=== PATIENT | male | born 1990 | race Caucasian/White ===

== ENCOUNTER 2018-02-12 18:09 | Inpatient (IN) | payer OTHER ==
--- NOTE | 2018-02-12 19:02 | PDOC ---
Rapid Medical Evaluation Chief Complaint: Pain Time Seen by Provider: 02/12/18 18:54 Medical Evaluation: Allergies Allergy/AdvReac Type Severity Reaction Status Date / Time hydromorphone [From Dilaudid] AdvReac Verified 02/12/18 18:51 Vital Signs Temp Pulse Resp BP Pulse Ox 97.9 F 78 18 114/66 98 02/12/18 18:53 02/12/18 18:53 02/12/18 18:53 02/12/18 18:53 02/12/18 18:53 02/12/18 18:55 Surgery for lap zahra on 02/05 @[facility] hosp D/C from [facility] on 02/07 Went home c/o n/v Went back to [facility] on 02/12 at ~ 1330 hours today/given zofran and d/c Pt states he went home today and started having n/v again CT of abd/pelvis today at [facility]: No discrete liver lesions. Sugg interval cholecystectomy with clips noted in gb fossa. CAnnot exclude a small biliary leak. Today, pt also had GAS test=neg ordered: CBC/chem
[2018-02-12] MEDS ORDERED: ONDANSETRON *ODT* 4 MG TABLET SL ONE (19:03)
--- NOTE | 2018-02-12 19:19 | PDOC ---
History of Present Illness - General Chief Complaint: Pain Stated Complaint: POST OP PAIN Time Seen by Provider: 02/12/18 18:54 - History of Present Illness Initial Comments: 27 year old healthy male 7 days s/p lap zahra complicated by need for second port hole for large gallbladder removal presenting with nausea, vomiting, fevers , and general weakness for the past 4 days after being discharged from [facility] Patient presents with his sister at bedside who states that the were at [facility] prior to presenting here but deferred further care there when the general surgeon told them that he needed to to take them back to the OR based on his symptoms and the CT scan demonstrating a collection of fluid. He received Zofran and Dilaudid in the ED there. Since the surgery he has been on ciproflox , flagyl, and polyethelene glycol. Patient was lethargic on exam from his pain medication but did admit to the abdominal pain. Never measured the fevers at home but admits he was very warm. 02/12/18 20:03 Past History - Past Medical History Allergies/Adverse Reactions: Allergies Allergy/AdvReac Type Severity Reaction Status Date / Time hydromorphone [From Dilaudid] AdvReac Verified 02/12/18 18:51 Home Medications: Ambulatory Orders Albuterol Sulfate Inhaler - [Ventolin HFA Inhaler -] 1 - 2 inh PO Q6H 02/12/18 Docusate Sodium [Stool Softener] 50 mg PO BID 02/15/18 Ranitidine [Zantac -] 150 mg PO BID 02/15/18 - Suicide/Smoking/Psychosocial Hx Smoking History: Smoker current status UNK Review of Systems - Review of Systems Constitutional: Yes: Chills, Fever, Loss of Appetite, Malaise, Weakness. No: Diaphoresis HEENTM: No: Blurred Vision, Tearing, Recent change in vision, Double Vision Respiratory: No: Cough, Orthopnea, Shortness of Breath Cardiac (ROS): No: Chest Pain, Edema, Irregular Heart Rate ABD/GI: Yes: Nausea, Poor Appetite, Poor Fluid Intake, Vomiting. No: Diarrhea : No: Burning, Dysuria, Discharge Musculoskeletal: No: Back Pain, Gout, Joint Pain Integumentary: No: Bruising, Lesions, Lumps, Pallor Neurological: No: Headache, Numbness, Paresthesia Psychiatric: No: Anxiety, Depression Hematologic/Lymphatic: No: Anemia, Blood Clots, Easy Bleeding *Physical Exam - Vital Signs Last Vital Signs Temp Pulse Resp BP Pulse Ox 97.9 F 78 18 114/66 98 02/12/18 18:53 02/12/18 18:53 02/12/18 18:53 02/12/18 18:53 02/12/18 18:53 - Physical Exam General Appearance: Yes: Nourished, Appropriately Dressed, Other (sedated and lethargic). No: Apparent Distress HEENT: positive: EOMI, WEST, Normal ENT Inspection, Normal Voice Neck: positive: Trachea midline, Normal Thyroid, Supple. negative: Tender, Rigid Respiratory/Chest: positive: Lungs Clear, Normal Breath Sounds. negative: Chest Tender, Respiratory Distress, Accessory Muscle Use Cardiovascular: positive: Regular Rhythm, Regular Rate Gastrointestinal/Abdominal: positive: Normal Bowel Sounds, Tender (diffusely tender but more so over surgical sites), Flat, Soft, Other (3 surgical scars with sivan that are well healing and without drainage/ dehiscence) Male Genitalia: positive: normal genitalia. negative: normal prostate Rectal Exam: positive: heme negative stool, normal exam Musculoskeletal: positive: Normal Inspection Extremity: positive: Normal Capillary Refill, Normal Inspection, Normal Range of Motion. negative: Tender Integumentary: positive: Normal Color, Dry, Warm Neurologic: positive: Fully Oriented (but sedated), Motor Strength 5/5 (weak). negative: Alert (somnolent) ED Treatment Course - LABORATORY CBC & Chemistry Diagram: 02/15/18 06:30 02/15/18 06:30 Medical Decision Making - Medical Decision Making 27 year old male with abdominal pain, nausea, vomiting, and warmth 7 s/p lap zahra. Patient and sister originally told me that they went to [facility] and the collection noted on the abdominal CT exam in the fossa was concerning enough to take him back to the OR. However, I spoke with the surgeon , Dr. Key, who states that he never mentioned the OR and that his suggestion was to perform a HIDA scan if the ER physicians were still concerned. However, he believes firmly that this is post op change. Our cancer program consultant, Dr. Hadley, was kind enough to offer us advice as well which was consistent with Dr. Key's view point. Patient was still very tender but nausea/ vomiting was resolved so he was admitted for observation and possible HIDA scan with further workup. His labs at [facility] were all WNL including LFTs, alk phos, and T-bili. Our lab values here echoed this with the exception of an elevated WBC (15 vs. 8). However, patient remains afebrile with stable vitals. Patient admitted to medicine. 02/12/18 20:36 *DC/Admit/Observation/Transfer Diagnosis at time of Disposition: Abdominal pain Qualifiers: Abdominal location: generalized Qualified Code(s): R10.84 - Generalized abdominal pain - Discharge Dispostion Disposition: HOME Condition at time of disposition: Improved - Referrals - Patient Instructions - Post Discharge Activity
[2018-02-12] MEDS ORDERED: ONDANSETRON *ODT* 4 MG TABLET ONE (19:51)
[2018-02-12 20:13] LABS: BASO % 0.3 % (0-2.0); EOS % 0.3 % (0-4.5); HEMATOCRIT 36.5 % (35.4-49); HEMOGLOBIN 12.8 GM/dL (11.7-16.9); LYMPH % 9.3 % (8-40); MCH 27.8 pg (25.7-33.7); MCHC 35.2 g/dl (32.0-35.9); MEAN CELL VOLUME 79.1 fl (80-96); MEAN PLT VOLUME 8.1 fl (7.5-11.1); MONO % 7.5 % (3.8-10.2); NEUT % 82.6 % (42.8-82.8); PLATELET COUNT 395 K/MM3 (134-434); RBC 4.61 M/mm3 (4.00-5.60); RDW 13.7 % (11.9-15.9); WHITE BLOOD COUNT 14.4 K/mm3 (4.0-10.0)
[2018-02-12] MEDS ORDERED: SODIUM CHLORIDE 1,000 ML IV STA (20:26)
[2018-02-12 20:35] LABS: ALBUMIN 3.5 g/dl (3.4-5.0); ALK PHOS 104 U/L (45-117); ANION GAP 9 MMOL/L (8-16); BILIRUBIN,TOTAL 0.3 mg/dL (0.2-1); BLOOD UREA NITROGEN 9 mg/dL (7-18); CALCIUM 8.4 mg/dL (8.5-10.1); CHLORIDE 107 mmol/L (98-107); CO2 26 mmol/L (21-32); CREATININE 1.1 mg/dL (0.55-1.3); GLUCOSE,RANDOM 149 mg/dL (74-106); POTASSIUM 3.9 mmol/L (3.5-5.1); SGOT/AST 28 U/L (15-37); SGPT/ALT 48 U/L (13-61); SODIUM 142 mmol/L (136-145); TOT PROT 6.7 g/dl (6.4-8.2)
[2018-02-12 21:56] LABS: INR 1.44 (0.83-1.09)
--- NOTE | 2018-02-12 23:35 | PN ---
Teaching Attending Note Name of Resident: Kayleigh Nicholson ATTENDING PHYSICIAN STATEMENT I saw and evaluated the patient. I reviewed the resident's note and discussed the case with the resident. I agree with the resident's findings and plan as documented. SUBJECTIVE: Patient is a 27 year old man with history of asthma who is 7 days post laparoscopic cholecystectomy complicated by need for second port hole for large gallbladder removal presenting with nausea, vomiting, fevers, and general weakness for the past 4 days after being discharged from [facility] Patient presents with his sister at bedside who states that the were at [facility] prior to presenting here but deferred further care there when the general surgeon told them that he needed to to take them back to the OR based on his symptoms and the CT scan demonstrating a collection of fluid. He received Zofran and Dilaudid in the ED there. Since the surgery he has been on ciproflox, flagyl, and polyethelene glycol. Patient was lethargic on exam from his pain medication but did admit to the abdominal pain. Never measured the fevers at home but admits he was very warm. OBJECTIVE: Alert Vital Signs Period Temp Pulse Resp BP Sys/Gabriel Pulse Ox Last 24 Hr 97.9 F 78 18 114/66 98 HEENT: No Jaundice, eye redness or discharge, PERRLA, EOMI. Normocephalic, atraumatic. External ears are normal and hearing is grossly intact. No nasal discharge. Neck: Supple, nontender. No palpable adenopathy or thyromegaly. No JVD Chest: Good effort. Clear to auscultation and percussion. Heart: Regular. No S3, rub or murmur Abdomen: Not distended, soft, sivan in place and tender around surgical site; no HSM. No rebound or guarding. Normoactive bowel sounds. Ext: Peripheral pulses intact. No leg edema. Skin: Warm and dry. No petechiae, rash or ecchymosis. Neuro: Alert. Oriented x3. CN 2-12 grossly intact. Sensation grossly intact in all four extremities and DTR are symmetric. ASSESSMENT AND PLAN: 1. Abdominal pain - Likely due to a complication from recent surgery. Will get CT scan and HIDA scan. Has been on PO Cipro and Flagyl and has been having diarrhea. WBC was ?8K at [facility] and is now up to 14K. Will get BC, UA, send stool for C.Diff stat and treat with IV Zosyn. Consult Surgery, ID and GI. Get records from [facility]. 2. DVT prophylaxis - Lovenox 40 mg SQ q 24 hours. 3. Advance directives - Full code
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
[2018-02-13] MEDS ORDERED: PIPERACILLIN/TAZOB 3.375 GM 3.375 GM/50 ML BAG IVPB ONE (02:10)
[2018-02-13] MEDS: PIPERACILLIN/TAZOB 3.375 GM 3.375 GM in DEXTROSE 5%-WATER - 50 ML IVPB SCH ×2 (02:30→12:21)
--- NOTE | 2018-02-13 02:35 | HP ---
CHIEF COMPLAINT: nausea and vomiting PCP: HISTORY OF PRESENT ILLNESS: Patient is a 27 y/o male who is s/p lap cholecystostomy who is here for nausea, vomiting, and diarrhea. Patient had a cholecystectomy last thursday due to " inflammation". Per patient the surgery did not go well and he had to have an extra hole made so it could be removed. Patient stayed in the hospital for two more days after. He was home for two more days without complaint and on thursday had an episode of vomiting with fever. He reports he has also been having frequent diarrhea, with another episode of vomiting this morning. He denies any sick contacts. Patient received Cipro and Flagyl x 10 days. Patient presented to [facility] earlier this day for a follow up appoing. He thought he was told he would need more surgery, which upset him and he decided to leave. Patient denies fevers, chills, chest pain, difficulty breathing, or shortness of breath. ER course was notable for: (1) NS (2) Zofran (3) Recent Travel: denies PAST MEDICAL HISTORY: asthma PAST SURGICAL HISTORY: laproscopic cholecystectomy Social History: Smoking: denies Alcohol: denies Drugs: denies Family History: Allergies hydromorphone [From Dilaudid] Adverse Reaction (Verified 02/12/18 18:51) HOME MEDICATIONS: Home Medications Medication Instructions Recorded Albuterol Sulfate Inhaler - 1 - 2 inh PO Q4H 02/12/18 [Ventolin Hfa Inhaler -] Ondansetron [Zofran *Odt*] 4 mg SL TID PRN 02/12/18 REVIEW OF SYSTEMS CONSTITUTIONAL: Absent: fever, chills, diaphoresis, generalized weakness, malaise, loss of appetite, weight change HEENT: Absent: rhinorrhea, nasal congestion, throat pain, throat swelling, difficulty swallowing, mouth swelling, ear pain, eye pain, visual changes CARDIOVASCULAR: Absent: chest pain, syncope, palpitations, irregular heart rate, lightheadedness , peripheral edema RESPIRATORY: Absent: cough, shortness of breath, dyspnea with exertion, orthopnea, wheezing, stridor, hemoptysis GASTROINTESTINAL: nausea, vomiting, diarrhea, Absent: abdominal pain, abdominal distension, constipation, melena, hematochezia GENITOURINARY: Absent: dysuria, frequency, urgency, hesitancy, hematuria, flank pain, genital pain MUSCULOSKELETAL: Absent: myalgia, arthralgia, joint swelling, back pain, neck pain SKIN: Absent: rash, itching, pallor HEMATOLOGIC/IMMUNOLOGIC: Absent: easy bleeding, easy bruising, lymphadenopathy, frequent infections ENDOCRINE: Absent: unexplained weight gain, unexplained weight loss, heat intolerance, cold intolerance NEUROLOGIC: Absent: headache, focal weakness or paresthesias, dizziness, unsteady gait, seizure, mental status changes, bladder or bowel incontinence PSYCHIATRIC: Absent: anxiety, depression, suicidal or homicidal ideation, hallucinations. PHYSICAL EXAMINATION Vital Signs - 24 hr 02/12/18 18:53 Temperature 97.9 F Pulse Rate 78 Respiratory 18 Rate Blood Pressure 114/66 O2 Sat by Pulse 98 Oximetry (%) GENERAL: Awake, alert, and fully oriented, in no acute distress. HEAD: Normal with no signs of trauma. EYES: Pupils equal, round and reactive to light, extraocular movements intact EARS, NOSE, THROAT: Moist mucous membranes. NECK: Normal range of motion, supple without lymphadenopathy, JVD, or masses. LUNGS: Breath sounds equal, clear to auscultation bilaterally. No wheezes, and no crackles. No accessory muscle use. HEART: Regular rate and rhythm, normal S1 and S2 without murmur, rub or gallop. ABDOMEN: 3 incisions held together by sivan, tenderness to light palpation at site of surgery LOWER EXTREMITIES: 2+ pulses, warm, well-perfused. No calf tenderness. No peripheral edema. NEUROLOGICAL: Cranial nerves II-XII intact. Normal speech. PSYCHIATRIC: Cooperative. Good eye contact. Appropriate mood and affect. SKIN: Warm, dry, normal turgor, no rashes or lesions noted, normal capillary refill. Laboratory Results - last 24 hr CBC, BMP 02/12/18 19:10 02/12/18 19:10 ASSESSMENT/PLAN: Patient is a 27 y/o male who is s/p lap cholecystostomy who is here for nausea, vomiting, and diarrhea. #nausea, vomiting, diarrhea likely 2/2 to post surgical status, cannot r/o perforation vs infection - CT of abdomen ordered - f/u Dr. Hadley for possible MRCP/HIDA tomorrow for further imaging - Continue coverage with Zosyn, patient had been on Cipro and Flagyl for ~ 10 days - NPO - f/u Dr. Hernández, GI and Dr. Moscoso, ID - f/u bcx pending #DVT ppx - Lovenox 40 mg sq Dispo: monitor clinically, ED resident discussed with Dr. Key patients surgeon Visit type - Emergency Visit Emergency Visit: Yes ED Registration Date: 02/12/18 Care time: The patient presented to the Emergency Department on the above date and was hospitalized for further evaluation of their emergent condition. - New Patient This patient is new to me today: Yes Date on this admission: 02/13/18 - Critical Care Critical Care patient: No
[2018-02-13 04:29] VITALS: BMI 21.4
[2018-02-13 08:22] LABS: BASO % 0.4 % (0-2.0); EOS % 1.7 % (0-4.5); HEMATOCRIT 36.3 % (35.4-49); HEMOGLOBIN 11.6 GM/dL (11.7-16.9); LYMPH % 28.9 % (8-40); MCH 25.8 pg (25.7-33.7); MCHC 32.1 g/dl (32.0-35.9); MEAN CELL VOLUME 80.4 fl (80-96); MEAN PLT VOLUME 8.3 fl (7.5-11.1); PLATELET COUNT 372 K/MM3 (134-434); RBC 4.51 M/mm3 (4.00-5.60); RDW 14.2 % (11.9-15.9); WHITE BLOOD COUNT 10.6 K/mm3 (4.0-10.0)
[2018-02-13 09:03] LABS: ALBUMIN 3.2 g/dl (3.4-5.0); ALK PHOS 94 U/L (45-117); ANION GAP 9 MMOL/L (8-16); BILIRUBIN,TOTAL 0.4 mg/dL (0.2-1); BLOOD UREA NITROGEN 9 mg/dL (7-18); CALCIUM 8.7 mg/dL (8.5-10.1); CHLORIDE 108 mmol/L (98-107); CO2 25 mmol/L (21-32); CREATININE 1.1 mg/dL (0.55-1.3); GLUCOSE,RANDOM 79 mg/dL (74-106); POTASSIUM 4.1 mmol/L (3.5-5.1); SGOT/AST 27 U/L (15-37); SGPT/ALT 43 U/L (13-61); SODIUM 142 mmol/L (136-145)
--- NOTE | 2018-02-13 10:20 | CONSULT ---
- Consultation REQUESTING PROVIDER: ER CONSULT REQUEST: We have been asked to surgically evaluate this patient for post op abdominal pain PCP:Rajiv Gaitan HISTORY OF PRESENT ILLNESS:SONYP who is a 27 y/o male s/p umesh sweeney 7 days ago who presented here after previous OPD evaluation at [facility] and ER after dissatisfaction w/the care he received there; he was told he may have a " leak " and came here for evaluation; he has virtually no c/o today; he had nausea and or vomiting; he was sent home on Cipro and Flagyl; he had a CT scan of the a/p which showed a small fluid collection in the GB fossa and a leak could not be ruled out; he was admitted here; he denies dark urine and/or light stools. PMHx: asthma PSHx: umesh sweeney Home Medications Medication Instructions Recorded Albuterol Sulfate Inhaler - 1 - 2 inh PO Q4H 02/12/18 [Ventolin Hfa Inhaler -] Ondansetron [Zofran *Odt*] 4 mg SL TID PRN 02/12/18 Allergies Allergy/AdvReac Type Severity Reaction Status Date / Time hydromorphone [From Dilaudid] AdvReac Verified 02/12/18 18:51 REVIEW OF SYSTEMS: CONSTITUTIONAL: Absent: fever, chills, diaphoresis, Present :generalized weakness, malaise, loss of appetite, CARDIOVASCULAR: Absent: chest pain, syncope, palpitations, irregular heart rate, lightheadedness , peripheral edema RESPIRATORY: Absent: cough, shortness of breath, dyspnea with exertion, wheezing, stridor, hemoptysis GASTROINTESTINAL: Absent: abdominal pain, abdominal distension, nausea, vomiting, diarrhea, constipation, melena, hematochezia GENITOURINARY: Absent: dysuria, frequency, urgency, hesitancy, hematuria, flank pain, genital pain MUSCULOSKELETAL: Absent: myalgia, arthralgia, joint swelling, back pain, neck pain SKIN: Absent: rash, itching, pallor HEMATOLOGIC/IMMUNOLOGIC: Absent: easy bleeding, easy bruising, lymphadenopathy NEUROLOGIC: Absent: headache, focal weakness, paresthesias, dizziness, unsteady gait, seizure, mental status changes, bladder or bowel incontinence PSYCHIATRIC: Absent: anxiety, depression, suicidal or homicidal ideation, hallucinations. PHYSICAL EXAM: GENERAL: Awake, alert, and fully oriented, in no acute distress. HEAD: Normal with no signs of trauma. EYES: PERRL, sclera anicteric, conjunctiva clear. NECK: Normal ROM, supple without lymphadenopathy, JVD, or masses. LUNGS: Clear to auscultation bilat anteriorly. No wheezes, and no crackles. No accessory muscle use. HEART: Regular rate and rhythm. No murmurs ABDOMEN: Soft, nontender, not distended, normoactive bowel sounds, no guarding, no rebound, no masses. No organomegaly. Healed port sites w/sivan in place. MUSCULOSKELETAL: Normal ROM at all joints. No bony deformities or tenderness. No CVA tenderness. UPPER EXTREMITIES: 2+ pulses, warm, well-perfused. No cyanosis. Cap refill <2 seconds. No peripheral edema. LOWER EXTREMITIES: 2+ pulses, warm, well-perfused. No calf tenderness. No peripheral edema. NEUROLOGICAL: Normal speech, gait not observed. PSYCH: Cooperative. Good eye contact. Appropriate mood and affect. SKIN: Warm, dry, normal turgor, no rashes or lesions noted. Vital Signs Temperature 98.9 F 02/13/18 04:13 Pulse Rate 72 02/13/18 04:13 Respiratory Rate 20 02/13/18 04:13 Blood Pressure 121/68 02/13/18 04:13 O2 Sat by Pulse Oximetry (%) 100 02/13/18 02:36 Lab Results WBC 10.6 K/mm3 (4.0-10.0) H 02/13/18 06:15 RBC 4.51 M/mm3 (4.00-5.60) 02/13/18 06:15 Hgb 11.6 GM/dL (11.7-16.9) L 02/13/18 06:15 Hct 36.3 % (35.4-49) 02/13/18 06:15 MCV 80.4 fl (80-96) 02/13/18 06:15 MCHC 32.1 g/dl (32.0-35.9) 02/13/18 06:15 RDW 14.2 % (11.9-15.9) 02/13/18 06:15 Plt Count 372 K/MM3 (134-434) 02/13/18 06:15 Sodium 142 mmol/L (136-145) 02/13/18 06:15 Potassium 4.1 mmol/L (3.5-5.1) 02/13/18 06:15 Chloride 108 mmol/L (98-107) H 02/13/18 06:15 Carbon Dioxide 25 mmol/L (21-32) 02/13/18 06:15 Anion Gap 9 MMOL/L (8-16) 02/13/18 06:15 BUN 9 mg/dL (7-18) 02/13/18 06:15 Creatinine 1.1 mg/dL (0.55-1.3) 02/13/18 06:15 Random Glucose 79 mg/dL (74-106) 02/13/18 06:15 Calcium 8.7 mg/dL (8.5-10.1) 02/13/18 06:15 Blood Type A POSITIVE 02/13/18 02:50 Antibody Screen Negative 02/12/18 21:18 INR 1.44 (0.83-1.09) H 02/12/18 21:[address] report reviewed IMP: post op abdo pain s/p lap zahra; suspicion for leak is low; most likely c/o 's are related to antibiotics etc. PLAN: Suggest HIDA scan to r/o leak; if leak is demonstrated will need ERCP and related procedures; would keep NPO; give IVF until presence or absence of a leak is demonstrated; would hold off o antibiotics and monitor temperature; he should be OOB ambulating. Lucio Hadley MD FACS
--- NOTE | 2018-02-13 10:20 | HOSP ---
Subjective - Review of Symptoms Events since last encounter: Patient is feeling better with no acute distress. No fever or chills, no shortness of breath. Vital Signs Temperature 98.9 F 02/13/18 04:13 Pulse Rate 72 02/13/18 04:13 Respiratory Rate 20 02/13/18 04:13 Blood Pressure 121/68 02/13/18 04:13 O2 Sat by Pulse Oximetry (%) 100 02/13/18 02:36 GENERAL: Awake, alert, and fully oriented, in no acute distress. HEAD: Normal with no signs of trauma. EYES: Pupils equal, round and reactive to light, extraocular movements intact EARS, NOSE, THROAT: Moist mucous membranes. NECK: Normal range of motion, supple without lymphadenopathy, JVD, or masses. LUNGS: Breath sounds equal, CTA BL . No wheezes, and no crackles. No accessory muscle use. HEART: Regular rate and rhythm, normal S1 and S2 without murmur, rub or gallop. ABDOMEN: 3 incisions held together by sivan, No tenderness to palpation at site of surgery EXTREMITIES: 2+ pulses, warm, well-perfused. No calf tenderness. No peripheral edema. NEUROLOGICAL: Cranial nerves II-XII intact. Normal speech. PSYCHIATRIC: Cooperative. Good eye contact. Appropriate mood and affect. SKIN: Warm, dry, normal turgor, no rashes or lesions noted, normal capillary refill. CBCD WBC 10.6 K/mm3 (4.0-10.0) H 02/13/18 06:15 RBC 4.51 M/mm3 (4.00-5.60) 02/13/18 06:15 Hgb 11.6 GM/dL (11.7-16.9) L 02/13/18 06:15 Hct 36.3 % (35.4-49) 02/13/18 06:15 MCV 80.4 fl (80-96) 02/13/18 06:15 MCHC 32.1 g/dl (32.0-35.9) 02/13/18 06:15 RDW 14.2 % (11.9-15.9) 02/13/18 06:15 Plt Count 372 K/MM3 (134-434) 02/13/18 06:15 MPV 8.3 fl (7.5-11.1) 02/13/18 06:15 CMP Sodium 142 mmol/L (136-145) 02/13/18 06:15 Potassium 4.1 mmol/L (3.5-5.1) 02/13/18 06:15 Chloride 108 mmol/L (98-107) H 02/13/18 06:15 Carbon Dioxide 25 mmol/L (21-32) 02/13/18 06:15 Anion Gap 9 MMOL/L (8-16) 02/13/18 06:15 BUN 9 mg/dL (7-18) 02/13/18 06:15 Creatinine 1.1 mg/dL (0.55-1.3) 02/13/18 06:15 Creat Clearance w eGFR > 60 (>60) 02/13/18 06:15 Random Glucose 79 mg/dL (74-106) 02/13/18 06:15 Calcium 8.7 mg/dL (8.5-10.1) 02/13/18 06:15 Total Bilirubin 0.4 mg/dL (0.2-1) 02/13/18 06:15 AST 27 U/L (15-37) 02/13/18 06:15 ALT 43 U/L (13-61) 02/13/18 06:15 Alkaline Phosphatase 94 U/L (45-117) 02/13/18 06:15 Total Protein 6.0 g/dl (6.4-8.2) L 02/13/18 06:15 Albumin 3.2 g/dl (3.4-5.0) L 02/13/18 06:15 Current Medications Generic Name Dose Route Start Last Admin Trade Name Freq PRN Reason Stop Dose Admin Enoxaparin Sodium 40 mg 02/13/18 10:00 Lovenox - SQ DAILY PORSCHE Piperacillin Sod/Tazobactam 50 mls @ 100 mls/hr 02/13/18 02:00 02/13/18 02:30 Sod 3.375 gm/ Dextrose IVPB 02/13/18 10:29 100 mls/hr Q8H-IV PORSCHE Administration Protocol Piperacillin Sod/Tazobactam 50 mls @ 100 mls/hr 02/13/18 18:00 Sod 3.375 gm/ Dextrose IVPB Q8H-IV PORSCHE Home Medications Medication Instructions Recorded Albuterol Sulfate Inhaler - 1 - 2 inh PO Q4H 02/12/18 [Ventolin Hfa Inhaler -] Ondansetron [Zofran *Odt*] 4 mg SL TID PRN 02/12/18 Microbiology 02/12/18 21:18 Blood - Peripheral Venous Blood Culture - Preliminary NO GROWTH OBTAINED AFTER 24 HOURS, INCUBATION TO CONTINUE FOR 4 DAYS. 02/12/18 21:18 Blood - Peripheral Venous Blood Culture - Preliminary NO GROWTH OBTAINED AFTER 24 HOURS, INCUBATION TO CONTINUE FOR 4 DAYS. A/P: Patient is a 27 y/o male who is s/p lap cholecystostomy who is here for nausea, vomiting, and diarrhea. #nausea, vomiting, diarrhea with recent surgery , cannot r/o perforation vs infection s/p IV Zosyn as per ID to observe the patient off antibiotic, Cx is no growth so far. Waiting for HIDA scan/MRCP . Dr. Hadley on the case. Patient was on Cipro and Flagyl for ~ 10 days, continue NPO, f/u Dr. Hernández, GI and Dr. Ventura, ID on the case, So far culture is negative. #DVT ppx : Lovenox 40 mg sq Physical Examination Vital Signs: Vital Signs Temperature 98.9 F 02/13/18 04:13 Pulse Rate 72 02/13/18 04:13 Respiratory Rate 20 02/13/18 04:13 Blood Pressure 121/68 02/13/18 04:13 O2 Sat by Pulse Oximetry (%) 100 02/13/18 02:36 Labs: CBC, BMP 02/13/18 06:15 02/13/18 06:15
--- NOTE | 2018-02-13 10:50 | PN ---
Progress Note (short form) - Note Progress Note: ID Consult dictated Post op lap zahra [facility] 02/05/18 admitted with subjective fever, weakness, N/V Low grade fever/ leukocytosis Imaging ordered to R/O bile leak, abscess Cultures pending Observe off antibiotics
--- NOTE | 2018-02-13 11:17 | CONS ---
DATE OF CONSULTATION: DATE OF DICTATION: 02/13/2018 The patient is a 27-year-old healthy male evaluated for low grade fever and leukocytosis. The patient underwent a laparoscopic cholecystectomy at [facility] on February 05, 2018. He reports being discharged on February 07, 2018. Post discharge he developed nausea and vomiting for which he returned to the emergency room and was treated with Zofran. He had also been prescribed ciprofloxacin and Flagyl. He now comes to [facility] with complaints of subjective fever, generalized weakness, fatigue, recurrent nausea and vomiting. He was evaluated in the emergency room where he was noted to have a temperature of 100.0 and a white blood cell count of 14,000. Cultures were obtained and he was empirically treated with Zosyn. At the present time he is awake and alert. He has no focal complaint. He has some nausea. Denies any abdominal pain. No vomiting. He reports having a normal bowel movement yesterday. PAST MEDICAL HISTORY: Positive for asthma. ALLERGIES: HYDROMORPHONE. LABORATORY DATA: White count on admission 14,000, presently 10.6, hematocrit 36.3, platelets 372. Creatinine 1.1. Liver enzymes normal. Blood cultures pending. PHYSICAL EXAMINATION: General: He is a thin male. He is awake and alert, supine in bed. In no acute distress. Not acutely toxic appearing. Vital Signs: T-max 100.0, blood pressure 121/68, pulse 72 and regular, respirations 20 per minute. HEENT: Sclerae anicteric.Heart: S1, S2. Lungs: Clear. Abdomen: Soft. No tenderness elicited. Laparoscopic surgical wounds with sivan in place. No erythema or drainage. Extremities: Negative for edema. Negative Homans sign. IMPRESSION: Postoperative laparoscopic cholecystectomy at [facility] February 05, 2018, admitted with subjective fever, weakness, nausea, vomiting, noted to have low grade fever and leukocytosis. Imaging has been ordered to rule out bile leak or abscess. Cultures are pending. Would observe off antibiotic therapy. Case discussed with Surgery. Thank you for the kind referral. RAMONITA TO M.D. [id number]
--- NOTE | 2018-02-13 11:55 | EKG ---
Test Reason : Blood Pressure : / mmHG Vent. Rate : 074 BPM Atrial Rate : 074 BPM P-R Int : 122 ms QRS Dur : 090 ms QT Int : 404 ms P-R-T Axes : 036 052 049 degrees QTc Int : 448 ms NORMAL SINUS RHYTHM CONCAVE ST SEGMENT ELEVATIONS IN INFERIOR LEADS (>1MM) SUSPECT EARLY REPOLARIZATION NORMAL VARIANT WHEN COMPARED WITH ECG OF 22-MAY-2010 10:12, NO SIGNIFICANT CHANGE WAS FOUND Confirmed by FAHAD GALICIA MD ([id number]) on 02/13/2018 11:55:13 AM Referred By: Confirmed By:FAHAD GALICIA MD
[2018-02-13] MEDS: ENOXAPARIN NA (PORCINE) 40 MG/0.4 ML DISP.SYRIN SQ SCH (13:13)
--- NOTE | 2018-02-13 15:42 | CONS ---
GASTROINTESTINAL CONSULTATION DATE OF CONSULTATION: DATE OF DICTATION: 02/13/2018 The patient is a 27-year-old man with a past medical history of asthma, who is status post laparoscopic cholecystectomy approximately a week ago who presented to the hospital with complaints of nausea, vomiting and diarrhea. He said prior to being hospitalized, he was eating without GI issue and felt well. Shortly thereafter developed his current symptoms. He presented to an outpatient clinic and was instructed to come to the ER for further evaluation. He was on outpatient antibiotics. He currently admits to abdominal pain, particularly at the suture site. He denies any vomiting today. Admits to some nausea and he is not having any more bowel movements/ diarrhea today. He denies seeing any blood in the stool. Denies fever or chills. PAST MEDICAL AND SURGICAL HISTORY: As listed in the HPI. ALLERGIES: HYDROMORPHONE. SOCIAL HISTORY: Does not smoke, drink or use drugs. FAMILY HISTORY: Noncontributory. PHYSICAL EXAMINATION: Vital Signs: Maximum temperature 100.8, currently 98.9; pulse rate 70; blood pressure 120/68; respiratory rate 12; blood pressure 120/68; oxygen saturation 100% on room air. General: No acute distress. HEENT: Anicteric sclerae. CARDIOVASCULAR: S1, S2. Regular rate and rhythm. LUNGS: Bilaterally clear to auscultation. ABDOMEN: Tender along the suture line. There is no rebound or guarding. EXTREMITIES: No edema. LABORATORY DATA: White blood cell count yesterday 14, currently 10.6; hemoglobin and hematocrit 11 and 36; MCV 80, platelet count 372. INR 1.4. Sodium 142, potassium 4, BUN/cruciate retaining 9/1.1. AST 27, ALT 43, total bilirubin 0.4. There was no imaging performed during this hospitalization. IMPRESSION: Abdominal pain status post cholecystectomy approximately a week ago. I would have expected him to present with a biliary leak earlier in the week; therefore, I would state that bile leak is low on the differential diagnosis. His current symptoms may be secondary to an infectious etiology or compounded by the use of antibiotics and postsurgical state. RECOMMENDATIONS: Obtain a HIDA scan to rule out a leak. I would keep him n.p.o., IV fluids until the HIDA scan is done. Once it is resulted, he can be advanced to a clear liquid diet. Also obtain stool culture, C difficile PCR, ova, parasite and leukocyte. Would start him on empiric antibiotics for now, Levaquin and Flagyl, pending the HIDA scan results. Surgery evaluation. Will follow this patient with you. DO MIKE BOX/[id number] MTDD
[2018-02-13 16:33] LABS: URINE APPEARANCE CLEAR; URINE BILIRUBIN NEGATIVE (<2.0 mg/dL); URINE COLOR YELLOW; URINE GLUCOSE (UA) NEGATIVE (NEGATIVE); URINE KETONE NEGATIVE (NEGATIVE); URINE LEUK ESTERASE TRACE (NEGATIVE); URINE NITRITE NEGATIVE (NEGATIVE); URINE PROTEIN NEGATIVE (NEGATIVE); URINE UROBILINOGEN NEGATIVE mg/dL (0.2-1.0)
[2018-02-13 16:37] LABS: URINE MUCUS RARE
[2018-02-13] MEDS: DEXTROSE 5%-NORMAL SALINE 1,000 ML IV SCH (17:03)
[2018-02-13] MEDS ORDERED: PIPERACILLIN/TAZOB 3.375 GM 3.375 GM in DEXTROSE 5%-WATER - 50 ML IVPB SCH (18:00)
[2018-02-14] MEDS: DEXTROSE 5%-NORMAL SALINE 1,000 ML IV SCH ×3 (01:21→17:34)
[2018-02-14] MEDS: ENOXAPARIN NA (PORCINE) 40 MG/0.4 ML DISP.SYRIN SQ SCH (10:49)
--- NOTE | 2018-02-14 11:28 | PN ---
Teaching Attending Note Name of Resident: Catherine Spence ATTENDING PHYSICIAN STATEMENT I saw and evaluated the patient. I reviewed the resident's note and discussed the case with the resident. I agree with the resident's findings and plan as documented. SUBJECTIVE: Patient is comfortable with no acute distress. No nausea or vomiting. OBJECTIVE: Initial Vital Signs Temp Pulse Resp BP Pulse Ox 97.9 F 78 18 114/66 98 02/12/18 18:53 02/12/18 18:53 02/12/18 18:53 02/12/18 18:53 02/12/18 18:53 Vital Signs Temperature 97.8 F 02/14/18 06:00 Pulse Rate 69 02/14/18 06:00 Respiratory Rate 20 02/14/18 06:00 Blood Pressure 109/67 02/14/18 06:00 O2 Sat by Pulse Oximetry (%) 99 02/13/18 20:47 GENERAL: Awake, alert, and fully oriented, in no acute distress. HEAD: Normal with no signs of trauma. EYES: Pupils equal, round and reactive to light, EOMI . EARS, NOSE, THROAT: Moist mucous membranes. NECK: Normal range of motion, supple without lymphadenopathy, JVD, or masses. LUNGS: Breath sounds equal, CTA BL . No wheezes, and no crackles. No accessory muscle use. HEART: Regular rate and rhythm, normal S1 and S2 without murmur, rub or gallop. ABDOMEN:soft, positive for mild pain on deep palpation at site of surgery. EXTREMITIES: 2+ pulses, warm, well-perfused. No calf tenderness. No peripheral edema. NEUROLOGICAL: Cranial nerves II-XII intact. Normal speech. PSYCHIATRIC: Cooperative. Good eye contact. Appropriate mood and affect. SKIN: Warm, dry, normal turgor, no rashes or lesions noted, normal capillary refill. CBCD WBC 10.6 K/mm3 (4.0-10.0) H 02/13/18 06:15 RBC 4.51 M/mm3 (4.00-5.60) 02/13/18 06:15 Hgb 11.6 GM/dL (11.7-16.9) L 02/13/18 06:15 Hct 36.3 % (35.4-49) 02/13/18 06:15 MCV 80.4 fl (80-96) 11/24/18 06:15 MCHC 32.1 g/dl (32.0-35.9) 02/13/18 06:15 RDW 14.2 % (11.9-15.9) 02/13/18 06:15 Plt Count 372 K/MM3 (134-434) 02/13/18 06:15 MPV 8.3 fl (7.5-11.1) 02/13/18 06:15 CMP Sodium 142 mmol/L (136-145) 02/13/18 06:15 Potassium 4.1 mmol/L (3.5-5.1) 02/13/18 06:15 Chloride 108 mmol/L (98-107) H 02/13/18 06:15 Carbon Dioxide 25 mmol/L (21-32) 02/13/18 06:15 Anion Gap 9 MMOL/L (8-16) 02/13/18 06:15 BUN 9 mg/dL (7-18) 02/13/18 06:15 Creatinine 1.1 mg/dL (0.55-1.3) 02/13/18 06:15 Creat Clearance w eGFR > 60 (>60) 02/13/18 06:15 Random Glucose 79 mg/dL (74-106) 02/13/18 06:15 Calcium 8.7 mg/dL (8.5-10.1) 02/13/18 06:15 Total Bilirubin 0.4 mg/dL (0.2-1) 02/13/18 06:15 AST 27 U/L (15-37) 02/13/18 06:15 ALT 43 U/L (13-61) 02/13/18 06:15 Alkaline Phosphatase 94 U/L (45-117) 02/13/18 06:15 Total Protein 6.0 g/dl (6.4-8.2) L 02/13/18 06:15 Albumin 3.2 g/dl (3.4-5.0) L 02/13/18 06:15 Current Medications Generic Name Dose Route Start Last Admin Trade Name Freq PRN Reason Stop Dose Admin Enoxaparin Sodium 40 mg 02/13/18 10:00 02/14/18 10:49 Lovenox - SQ 40 mg DAILY PORSCHE Administration Dextrose/Sodium Chloride 1,000 mls @ 125 mls/hr 02/13/18 16:00 02/14/18 01:21 D5-Ns - IV 125 mls/hr ASDIR PORSCHE Administration Home Medications Medication Instructions Recorded Albuterol Sulfate Inhaler - 1 - 2 inh PO Q4H 02/12/18 [Ventolin Hfa Inhaler -] Ondansetron [Zofran *Odt*] 4 mg SL TID PRN 02/12/18 Microbiology 02/12/18 21:18 Blood - Peripheral Venous Blood Culture - Preliminary NO GROWTH OBTAINED AFTER 24 HOURS, INCUBATION TO CONTINUE FOR 4 DAYS. 02/12/18 21:18 Blood - Peripheral Venous Blood Culture - Preliminary NO GROWTH OBTAINED AFTER 24 HOURS, INCUBATION TO CONTINUE FOR 4 DAYS. ASSESSMENT AND PLAN: Patient is a 27 y/o male who is s/p lap cholecystostomy who is here for nausea, vomiting, and diarrhea. #Acute nausea, vomiting, diarrhea with recent surgery , r/o bile leak, s/p IV Zosyn as per ID to observe the patient off antibiotic, Cx is no growth so far. Waiting for HIDA scan/MRCP . Dr. Hadley on the case. Patient was on Cipro and Flagyl for ~ 10 days, continue NPO, f/u Dr. Hernández, GI and Dr. Ventura, ID on the case, So far culture is negative. #DVT ppx : Lovenox 40 mg sq
--- NOTE | 2018-02-14 11:32 | PN ---
Progress Note, Physician Chief Complaint: still with nausea abdominal discomfort less - Current Medication List Current Medications: Active Medications Enoxaparin Sodium (Lovenox -) 40 mg SQ DAILY [facility] Last Admin: 02/14/18 10:49 Dose: 40 mg Dextrose/Sodium Chloride (D5-Ns -) 1,000 mls @ 125 mls/hr IV ASDIR [facility] Last Admin: 02/14/18 01:21 Dose: 125 mls/hr - Objective Vital Signs: Vital Signs Temperature 97.8 F 02/14/18 06:00 Pulse Rate 69 02/14/18 06:00 Respiratory Rate 20 02/14/18 06:00 Blood Pressure 109/67 02/14/18 06:00 O2 Sat by Pulse Oximetry (%) 99 02/13/18 20:47 Constitutional: Yes: Well Nourished, No Distress, Calm Eyes: Yes: WNL HENT: Yes: WNL Neck: Yes: WNL Cardiovascular: Yes: WNL Respiratory: Yes: Regular, CTA Bilaterally Gastrointestinal: Yes: Normal Bowel Sounds, Other (tender to deep palpation post - surgical tenderness at incision site no rebound or guarding normal BS) Edema: No Labs: CBC, BMP 02/13/18 06:15 02/13/18 06:15 INR, PTT INR 1.44 (0.83-1.09) H 02/12/18 21:18 Problem List - Problems (1) Abdominal pain Assessment/Plan: CT scan and HIDA scan pending results IVf's off abx trial of clear liquid pending CT scan results f/u labs surgery f/u Code(s): R10.9 - UNSPECIFIED ABDOMINAL PAIN (2) Vomiting Code(s): R11.10 - VOMITING, UNSPECIFIED
[2018-02-14] MEDS ORDERED: ONDANSETRON 4 MG/2 ML VIAL IVPB PRN (11:44)
--- NOTE | 2018-02-14 11:47 | PN ---
Physical Exam: SUBJECTIVE: Patient seen and examined; c/o of nausea; mild abdominal RUQ pain; denies vomiting, ARAUZ, fevers, chills. OBJECTIVE: Vital Signs Period Temp Pulse Resp BP Sys/Gabriel Pulse Ox Last 24 Hr 97.8 F-98.6 F 69-80 18-20 100-123/54-67 99 GENERAL: The patient is awake, alert, and fully oriented, in no acute distress. HEAD: Normal with no signs of trauma. EYES: PERRL, extraocular movements intact, sclera anicteric, conjunctiva clear. No ptosis. ENT: Ears normal, nares patent, oropharynx clear without exudates, moist mucous membranes. NECK: Trachea midline, full range of motion, supple. LUNGS: Breath sounds equal, clear to auscultation bilaterally, no wheezes, no crackles, no accessory muscle use. HEART: Regular rate and rhythm, S1, S2 without murmur, rub or gallop. ABDOMEN: Soft,tender RUQ, nondistended, normoactive bowel sounds, no guarding, no rebound, no hepatosplenomegaly, no masses. EXTREMITIES: 2+ pulses, warm, well-perfused, no edema. NEUROLOGICAL: Cranial nerves II through XII grossly intact. Normal speech, gait not observed. PSYCH: Normal mood, normal affect. SKIN: Warm, dry, normal turgor, no rashes or lesions noted Laboratory Results - last 24 hr 02/13/18 10:30 Urine Color Yellow Urine Appearance Clear Urine pH 5.0 Ur Specific [place] 1.016 Urine Protein Negative Urine Glucose (UA) Negative Urine Ketones Negative Urine Blood Negative Urine Nitrite Negative Urine Bilirubin Negative Urine Urobilinogen Negative Ur Leukocyte Esterase Trace Urine WBC (Auto) 1 Urine RBC (Auto) <1 Urine Mucus Rare Active Medications Generic Name Dose Route Start Last Admin Trade Name Freq PRN Reason Stop Dose Admin Enoxaparin Sodium 40 mg 02/13/18 10:00 02/14/18 10:49 Lovenox - SQ 40 mg DAILY PORSCHE Administration Dextrose/Sodium Chloride 1,000 mls @ 125 mls/hr 02/13/18 16:00 02/14/18 01:21 D5-Ns - IV 125 mls/hr ASDIR PORSCHE Administration Ondansetron HCl 4 mg 02/14/18 11:44 Zofran Injection IVPB Q8H PRN NAUSEA ASSESSMENT/PLAN: This is a 27 year old male with a recent history of laproscopic cholecystectomy at [facility] last week, presenting with n/v/abdominal pain, admitting for r/o abscess formation vs leak. #abdominal pain n/v/ leukocytosis s/p lap zahra -r/o abscess and leak -CT abdomen and pelvic pending -HIDA scan pending -NPO -IVF -monitor off antibiotics -zofran prn -Tylenol for pain -surgery/GI and ID following Diet: NPO vte ppl: on lovenox Disposition: continue to monitor on floors; imaging pending Visit type - Emergency Visit Emergency Visit: Yes ED Registration Date: 02/13/18 Care time: The patient presented to the Emergency Department on the above date and was hospitalized for further evaluation of their emergent condition. - New Patient This patient is new to me today: Yes Date on this admission: 02/14/18 - Critical Care Critical Care patient: No
[2018-02-14] MEDS ORDERED: ACETAMINOPHEN 1000 MG/100 ML VIAL (NON FORMULARY) IVPB ONE (11:58)
[2018-02-15] MEDS: DEXTROSE 5%-NORMAL SALINE 1,000 ML IV SCH ×2 (03:47→13:57)
[2018-02-15] MEDS ORDERED: ACETAMINOPHEN 1000 MG/100 ML VIAL (NON FORMULARY) IVPB ONE (04:30)
[2018-02-15 07:25] LABS: BASO % 0.4 % (0-2.0); EOS % 2.9 % (0-4.5); HEMATOCRIT 31.2 % (35.4-49); HEMOGLOBIN 10.9 GM/dL (11.7-16.9); LYMPH % 42.3 % (8-40); MCH 27.8 pg (25.7-33.7); MEAN CELL VOLUME 79.5 fl (80-96); MEAN PLT VOLUME 8.5 fl (7.5-11.1); MONO % 9.3 % (3.8-10.2); NEUT % 45.1 % (42.8-82.8); PLATELET COUNT 365 K/MM3 (134-434); RBC 3.93 M/mm3 (4.00-5.60); RDW 14.1 % (11.9-15.9); WHITE BLOOD COUNT 6.6 K/mm3 (4.0-10.0)
[2018-02-15 08:06] LABS: ANION GAP 6 MMOL/L (8-16); BLOOD UREA NITROGEN 4 mg/dL (7-18); CALCIUM 8.4 mg/dL (8.5-10.1); CHLORIDE 109 mmol/L (98-107); CO2 28 mmol/L (21-32); CREATININE 0.9 mg/dL (0.55-1.3); GLUCOSE,RANDOM 104 mg/dL (74-106); MAGNESIUM 1.9 mg/dL (1.8-2.4); POTASSIUM 3.5 mmol/L (3.5-5.1); SODIUM 142 mmol/L (136-145)
--- NOTE | 2018-02-15 08:11 | PN ---
Progress Note (short form) - Note Progress Note: Alert. No acute events over past 24 hours per RN notes. Still c/o of mild intermittent nausea with RUQ pain (s/p umesh sweeney @ [facility]) Denies vomiting, ARAUZ, fevers, chills PLAN: Suggest HIDA scan to r/o leak; if leak is demonstrated will need ERCP and related procedures Keep NPO IVF Cont OOB ambulating.
--- NOTE | 2018-02-15 08:23 | PN ---
Progress Note (short form) - Note Progress Note: came to follow-up on patient from Dr. Solomon's weekend coverage. He was quite brief with his answers, did not open his eyes while I was talking to him and stated that he wants to sleep.
[2018-02-15] MEDS: ENOXAPARIN NA (PORCINE) 40 MG/0.4 ML DISP.SYRIN SQ SCH (10:28)
[2018-02-15 11:59] VITALS: BP 107/59; PULSE 59; TEMP 98.6
--- NOTE | 2018-02-15 16:40 | PN ---
Teaching Attending Note Name of Resident: Kayleigh Bharat ATTENDING PHYSICIAN STATEMENT I saw and evaluated the patient. I reviewed the resident's note and discussed the case with the resident. I agree with the resident's findings and plan as documented. SUBJECTIVE: OBJECTIVE: Vital Signs Temperature 98.6 F 02/15/18 11:00 Pulse Rate 59 L 02/15/18 11:00 Respiratory Rate 20 02/15/18 11:00 Blood Pressure 107/59 L 02/15/18 11:00 O2 Sat by Pulse Oximetry (%) 99 02/15/18 09:00 GENERAL: Awake, alert, and fully oriented, in no acute distress. HEAD: Normal with no signs of trauma. EYES: Pupils equal, round and reactive to light, EOMI . EARS, NOSE, THROAT: Moist mucous membranes. NECK: Normal range of motion, supple without lymphadenopathy, JVD, or masses. LUNGS: Breath sounds equal, CTA BL . No wheezes, and no crackles. No accessory muscle use. HEART: Regular rate and rhythm, normal S1 and S2 without murmur, rub or gallop. ABDOMEN:soft, positive for mild pain on deep palpation at site of surgery. EXTREMITIES: 2+ pulses, warm, well-perfused. No calf tenderness. No peripheral edema. NEUROLOGICAL: Cranial nerves II-XII intact. Normal speech. PSYCHIATRIC: Cooperative. Good eye contact. Appropriate mood and affect. SKIN: Warm, dry, normal turgor, no rashes or lesions noted, normal capillary refill. CBCD WBC 6.6 K/mm3 (4.0-10.0) 02/15/18 06:30 RBC 3.93 M/mm3 (4.00-5.60) L 02/15/18 06:30 Hgb 10.9 GM/dL (11.7-16.9) L 02/15/18 06:30 Hct 31.2 % (35.4-49) L 02/15/18 06:30 MCV 79.5 fl (80-96) L 02/15/18 06:30 MCHC 35.0 g/dl (32.0-35.9) 02/15/18 06:30 RDW 14.1 % (11.9-15.9) 02/15/18 06:30 Plt Count 365 K/MM3 (134-434) 02/15/18 06:30 MPV 8.5 fl (7.5-11.1) 02/15/18 06:30 CMP Sodium 142 mmol/L (136-145) 02/15/18 06:30 Potassium 3.5 mmol/L (3.5-5.1) 02/15/18 06:30 Chloride 109 mmol/L (98-107) H 02/15/18 06:30 Carbon Dioxide 28 mmol/L (21-32) 02/15/18 06:30 Anion Gap 6 MMOL/L (8-16) L 02/15/18 06:30 BUN 4 mg/dL (7-18) L 02/15/18 06:30 Creatinine 0.9 mg/dL (0.55-1.3) 02/15/18 06:30 Creat Clearance w eGFR > 60 (>60) 02/15/18 06:30 Random Glucose 104 mg/dL (74-106) 02/15/18 06:30 Calcium 8.4 mg/dL (8.5-10.1) L 02/15/18 06:30 Total Bilirubin 0.4 mg/dL (0.2-1) 02/13/18 06:15 AST 27 U/L (15-37) 02/13/18 06:15 ALT 43 U/L (13-61) 02/13/18 06:15 Alkaline Phosphatase 94 U/L (45-117) 02/13/18 06:15 Total Protein 6.0 g/dl (6.4-8.2) L 02/13/18 06:15 Albumin 3.2 g/dl (3.4-5.0) L 02/13/18 06:15 Current Medications Generic Name Dose Route Start Last Admin Trade Name Freq PRN Reason Stop Dose Admin Enoxaparin Sodium 40 mg 02/13/18 10:00 02/15/18 10:28 Lovenox - SQ 40 mg DAILY PORSCHE Administration Dextrose/Sodium Chloride 1,000 mls @ 125 mls/hr 02/13/18 16:00 02/15/18 13:57 D5-Ns - IV 125 mls/hr ASDIR PORSCHE Administration Ondansetron HCl 4 mg 02/14/18 11:44 02/14/18 12:52 Zofran Injection IVPB 4 mg Q8H PRN Administration NAUSEA Home Medications Medication Instructions Recorded Albuterol Sulfate Inhaler - 1 - 2 inh PO Q4H 02/12/18 [Ventolin Hfa Inhaler -] Ondansetron [Zofran *Odt*] 4 mg SL TID PRN 02/12/18 Microbiology 02/12/18 21:18 Blood - Peripheral Venous Blood Culture - Preliminary NO GROWTH OBTAINED AFTER 48 HOURS, INCUBATION TO CONTINUE FOR 3 DAYS. 02/12/18 21:18 Blood - Peripheral Venous Blood Culture - Preliminary NO GROWTH OBTAINED AFTER 48 HOURS, INCUBATION TO CONTINUE FOR 3 DAYS. ASSESSMENT AND PLAN: Patient is a 27 y/o male who is s/p lap cholecystostomy who is here for nausea, vomiting, and diarrhea. #Acute nausea, vomiting, diarrhea with recent surgery improved , r/o bile leak , s/p HIDA no leak reported , Discussed with aleisha Alegria to send the patient home if he tolerates full liquid diet and follow up with his surgeon at [facility]. Patient was on Cipro and Flagyl for ~ 10 days. culture is negative. discharge patient home once tolerates the full liquid diet.
--- NOTE | 2018-02-15 17:10 | DS ---
Physical Exam: SUBJECTIVE: Patient seen in the morning and he was very resistant to waking up. Reports he still has abdominal pain " when the doctors touch him". Denies any further episodes of nausea or vomiting. No acute events overnight. OBJECTIVE: Vital Signs Temperature 98.6 F 02/15/18 11:00 Pulse Rate 59 L 02/15/18 11:00 Respiratory Rate 20 02/15/18 11:00 Blood Pressure 107/59 L 02/15/18 11:00 O2 Sat by Pulse Oximetry (%) 99 02/15/18 09:00 PHYSICAL EXAM GENERAL: Awake, alert, and fully oriented, in no acute distress. EYES: Pupils equal, round and reactive to light, extraocular movements intact NECK: Normal range of motion, supple without lymphadenopathy, JVD, or masses. LUNGS: Breath sounds equal, clear to auscultation bilaterally. No wheezes, and no crackles. No accessory muscle use. HEART: Regular rate and rhythm, normal S1 and S2 without murmur, rub or gallop. ABDOMEN: 3 incisions held together by sivan, tenderness to light palpation at site of surgery LOWER EXTREMITIES: 2+ pulses, warm, well-perfused. No calf tenderness. No peripheral edema. PSYCHIATRIC: Cooperative. Good eye contact. Appropriate mood and affect. SKIN: Warm, dry, normal turgor, no rashes or lesions noted, normal capillary refill. LABS Laboratory Results - last 24 hr 02/15/18 02/15/18 06:30 06:30 WBC 6.6 RBC 3.93 L Hgb 10.9 L Hct 31.2 L MCV 79.5 L MCH 27.8 MCHC 35.0 RDW 14.1 Plt Count 365 MPV 8.5 Absolute Neuts (auto) 3.0 Neutrophils % 45.1 D Lymphocytes % 42.3 H D Monocytes % 9.3 Eosinophils % 2.9 Basophils % 0.4 Nucleated RBC % 0 Sodium 142 Potassium 3.5 Chloride 109 H Carbon Dioxide 28 Anion Gap 6 L BUN 4 L Creatinine 0.9 Creat Clearance w eGFR > 60 Random Glucose 104 Calcium 8.4 L Magnesium 1.9 HOSPITAL COURSE: Date of Admission:02/13/18 patient was admitted for abdominal pain. He had recently had an appendectomy at [facility] one week ago. Patient evaluated by surgeon, Dr. Hadley, in ED to monitor patient. Patient was made NPO and his pain was managed. Patient did not present infectious and was observed off antibiotics per ID. A HIDA scan was done and did not show any evidence of a leak or extravasation. Patient was able to tolerate a clear liquid diet and was D/C home. Patient was instructed to follow up with his surgeon for further management post op. blood culture: negative growth Date of Discharge: 02/15/18 Minutes to complete discharge: 36 Discharge Summary Reason For Visit: STATUS POST CHOLECYSTEMONY,NASEA AND VOMITING,ABDO Condition: Improved - Instructions Diet, Activity, Other Instructions: You came to the Emergency Department because you were vomiting and having abdominal pain. Because you recently had your gallbladder removed we wanted to monitor you. We had Imaging done and it did not show any abnormalities at this time. It is very important that you follow up with your surgeon at [facility] who removed your gallbladder in the next few days to monitor you. You can also follow up with the surgeon you saw here, Dr. Hadley, within one week. Please follow up with your primary care physician within one week. Continue your home medications as prescribed. Please return to the Emergency Department if you have any worsening of pain, nausea, chest pain, shortness of breath, or fever. Referrals: Lucio Hadley MD [Staff Physician] - 1 Week Kayleigh Solomon DO [Staff Physician] - 1 Week Disposition: HOME - Home Medications Comprehensive Discharge Medication List: Ambulatory Orders Albuterol Sulfate Inhaler - [Ventolin HFA Inhaler -] 1 - 2 inh PO Q6H 02/12/18 Docusate Sodium [Stool Softener] 50 mg PO BID 02/15/18 Ranitidine [Zantac -] 150 mg PO BID 02/15/18 This patient is new to me today: No Emergency Visit: No Critical Care patient: No - Discharge Referral Referred to [facility] No
== END 2018-02-15 19:24 | disposition home or self-care (01) | DRG 813 ==
LOC: JER 18:09 → JERBED 20:28 → INTOOBSV 20:28 → J8W 02-13 03:39 → OBSVTOIN 02-13 15:50
PROVIDERS: ADMIT Internal Medicine; ATTEND Internal Medicine
DX: T81.89XA Other complications of procedures, not elsewhere classified, initial encounter (principal); Y83.8 Other surgical procedures as the cause of abnormal reaction of the patient, or of later complication, without mention of misadventure at the time of the procedure; R11.2 Nausea with vomiting, unspecified; R19.7 Diarrhea, unspecified; D72.829 Elevated white blood cell count, unspecified
CPT/HCPCS: 36415; 78226-TC; 80048; 80053; 81003; 81015; 83735; 85025; 85610; 86850; 86900; 86901; 87040; 93005; 93010; 99284-25; A9537; G0378; J0131; J7030; Q0162

== ENCOUNTER 2018-10-12 19:19 | Emergency (ER) | payer OTHER ==
--- NOTE | 2018-10-12 19:25 | PDOC ---
Rapid Medical Evaluation Time Seen by Provider: 10/12/18 19:23 Medical Evaluation: Allergies Allergy/AdvReac Type Severity Reaction Status Date / Time hydromorphone [From Dilaudid] AdvReac Verified 02/12/18 18:51 10/12/18 19:23 HPI: belly pain and nausea x1 year but worse today 1 year s/p cholecystectomy PE: No gross deficits ORDERS: Belly labs Discharge Disposition - Diagnosis Abdominal pain - Referrals - Patient Instructions - Post Discharge Activity
[2018-10-12 19:33] VITALS: TEMP 98.1; BMI 24.3
--- NOTE | 2018-10-12 21:56 | PDOC ---
History of Present Illness - General Chief Complaint: Pain Stated Complaint: ABD PAIN Time Seen by Provider: 10/12/18 19:23 History Source: Patient - History of Present Illness Initial Comments: 10/12/18 21:54 28 year old male with nausea, left sided abdominal pain since this morning. worse with movement. + chills, denies fever + anorexia, denies urinary symptoms , testicular pain. patient reports that he has been having pain to the LEft sided pain on and off after cholecystectomy. PMHX: migraines; asthma PSHX: gall bladder removal 10/12/18 22:00 Past History - Past Medical History Allergies/Adverse Reactions: Allergies Allergy/AdvReac Type Severity Reaction Status Date / Time shellfish derived Allergy Verified 10/12/18 19:24 hydromorphone [From Dilaudid] AdvReac Verified 02/12/18 18:51 Home Medications: Ambulatory Orders Albuterol Sulfate Inhaler - [Ventolin HFA Inhaler -] 1 - 2 inh PO Q6H 02/12/18 Docusate Sodium [Stool Softener] 50 mg PO BID 02/15/18 Ranitidine [Zantac -] 150 mg PO BID 02/15/18 Famotidine [Pepcid] 40 mg PO DAILY #20 tablet 10/13/18 Asthma: Yes COPD: No Other medical history: chronic back pain - Surgical History Cholecystectomy: Yes (02/05) - Immunization History Immunization Up to Date: Yes - Suicide/Smoking/Psychosocial Hx Smoking History: Never smoked Have you smoked in the past 12 months: Yes Number of Cigarettes Smoked Daily: 6 'Breaking Loose' booklet given: 02/13/18 Hx Alcohol Use: No Drug/Substance Use Hx: No Substance Use Type: None Review of Systems - Review of Systems Able to Perform ROS?: Yes Is the patient limited [place]ish proficient: No Constitutional: No: Symptoms Reported, See HPI, Chills, Diaphoresis, Fever, Loss of Appetite, Malaise, Night Sweats, Weakness, Weight Stable, Unintentional Wgt. Loss, Unexplained wgt Loss, Other ABD/GI: Yes: Nausea, Abdominal cramping Neurological: Yes: Dizziness *Physical Exam - Vital Signs Last Vital Signs Temp Pulse Resp BP Pulse Ox 98.1 F 86 20 127/74 98 10/12/18 19:26 10/12/18 19:26 10/12/18 19:26 10/12/18 19:26 10/12/18 19:26 - Physical Exam General Appearance: Yes: Appropriately Dressed Respiratory/Chest: positive: Lungs Clear, Normal Breath Sounds Cardiovascular: positive: Regular Rhythm, Regular Rate Gastrointestinal/Abdominal: positive: Normal Bowel Sounds, Tender (LUQ, LLQ), Soft, Other (no rLQ pain) Extremity: positive: Normal Capillary Refill, Normal Inspection, Normal Range of Motion Integumentary: positive: Normal Color, Dry, Warm Neurologic: positive: Fully Oriented, Alert, Normal Mood/Affect ED Treatment Course - LABORATORY CBC & Chemistry Diagram: 10/12/18 22:37 10/12/18 22:37 Progress Note - Progress Note Progress Note: A: abdominal pain P: labs IVF ua pepcid zofran Medical Decision Making - Medical Decision Making 10/13/18 00:02 patient is pain free. tolerated crackers and water. will dc home with pepcid. liekly gastritis. advised to follow up with PCP. Strict return precautions were reviewed with patient. *DC/Admit/Observation/Transfer Diagnosis at time of Disposition: Abdominal pain Qualifiers: Abdominal location: left upper quadrant Qualified Code(s): R10.12 - Left upper quadrant pain Gastritis Qualifiers: Gastritis type: unspecified gastritis Chronicity: acute Gastritis bleeding: without bleeding Qualified Code(s): K29.00 - Acute gastritis without bleeding - Discharge Dispostion Disposition: HOME - Prescriptions Prescriptions: Famotidine [Pepcid] 40 mg PO DAILY #20 tablet - Referrals Referrals: Erwin Stallworth MD [Staff Physician] - Call tomorrow - Patient Instructions Printed Discharge Instructions: [place] Diet Additional Instructions: start a bland diet drink plenty of fluids follow up with your doctor as soon as possible. - Post Discharge Activity Forms/Work/School Notes: Back to Work
[2018-10-12] MEDS ORDERED: FAMOTIDINE 20 MG/50 ML IVPB 20 MG/50 ML MG IVPB ONE ×2 (22:00→22:42)
[2018-10-12] MEDS ORDERED: SODIUM CHLORIDE 1,000 ML IV STA (22:00)
[2018-10-12] MEDS ORDERED: ONDANSETRON 4 MG/2 ML VIAL IVPB ONE (22:00)
[2018-10-12] MEDS ORDERED: ONDANSETRON 4 MG/2 ML VIAL ONE (22:42)
[2018-10-12 22:55] LABS: BASO % 0.5 % (0-2.0); EOS % 0.6 % (0-4.5); HEMATOCRIT 43.3 % (35.4-49); HEMOGLOBIN 14.7 GM/dL (11.7-16.9); LYMPH % 29.2 % (8-40); MCH 26.9 pg (25.7-33.7); MEAN CELL VOLUME 79.1 fl (80-96); MEAN PLT VOLUME 9.6 fl (7.5-11.1); MONO % 7.9 % (3.8-10.2); NEUT % 61.8 % (42.8-82.8); PLATELET COUNT 250 K/MM3 (134-434); RBC 5.48 M/mm3 (4.00-5.60); RDW 13.7 % (11.9-15.9); WHITE BLOOD COUNT 11.6 K/mm3 (4.0-10.0)
[2018-10-12 23:25] LABS: ALBUMIN 4.8 g/dl (3.4-5.0); BILIRUBIN,TOTAL 1.1 mg/dL (0.2-1); BLOOD UREA NITROGEN 12.7 mg/dL (7-18); CALCIUM 9.8 mg/dL (8.5-10.1); CREATININE 1.2 mg/dL (0.55-1.3); POTASSIUM 3.7 mmol/L (3.5-5.1)
[2018-10-12 23:37] LABS: EPI CELLS 7.1 /HPF (0-5/HPF); HYALINE CASTS 41 /lpf (0-8); PH,URINE 5.5 (5.0-8.0); URINE APPEARANCE TURBID; URINE BACTERIA 7.5 /hpf (NEGATIVE); URINE BILIRUBIN NEGATIVE (NEGATIVE); URINE COLOR DK YELLOW; URINE GLUCOSE (UA) NEGATIVE (NEGATIVE); URINE KETONE 1+ (NEGATIVE); URINE LEUK ESTERASE NEGATIVE (NEGATIVE); URINE NITRITE NEGATIVE (NEGATIVE); URINE PROTEIN 1+ (NEGATIVE); URINE RBC 2 /hpf (0-4); URINE WBC 4 /hpf (0-5)
[2018-10-13 01:32] VITALS: BP 125/76; PULSE 84
== END 2018-10-13 00:04 | disposition home or self-care (01) ==
LOC: JER 19:19
PROC: 3E033GC Introduction of Other Therapeutic Substance into Peripheral Vein, Percutaneous Approach (ICD-10-PCS; principal; 2018-10-12)
PROC: 3E0337Z Introduction of Electrolytic and Water Balance Substance into Peripheral Vein, Percutaneous Approach (ICD-10-PCS; 2018-10-12)
DX: K29.00 Acute gastritis without bleeding (principal); R10.13 Epigastric pain
CPT/HCPCS: 36415; 80053; 81003; 83690; 85025; 96365; 96375; 99283-25; J7030

== ENCOUNTER 2021-04-05 01:37 | Emergency (ER) | payer OTHER ==
[2021-04-05 01:49] VITALS: BP 123/79; PULSE 86; TEMP 97.7; BMI 23.7
[2021-04-05] MEDS ORDERED: predniSONE 20 MG TABLET (UD) PO ONE (02:35)
[2021-04-05] MEDS ORDERED: ALBUTEROL SO4 HFA INHALER IH ONE ×2 (02:36→02:43)
[2021-04-05] MEDS ORDERED: predniSONE 20 MG TABLET (UD) ONE (02:43)
== END 2021-04-05 03:55 | disposition home or self-care (01) ==
LOC: JER 01:37
PROC: 3E0F7GC Introduction of Other Therapeutic Substance into Respiratory Tract, Via Natural or Artificial Opening (ICD-10-PCS; principal; 2021-04-05)
DX: J45.21 Mild intermittent asthma with (acute) exacerbation (principal)
CPT/HCPCS: 87804; 99284-25; C9803; U0003; U0005

== ENCOUNTER 2022-02-12 13:23 | Emergency (ER) | payer OTHER ==
[2022-02-12 13:32] VITALS: BP 126/79; PULSE 119; RESP 19; TEMP 102.2; BMI 25.0
[2022-02-12] MEDS ORDERED: ACETAMINOPHEN 325 MG TABLET (FP) PO ONE (13:38)
[2022-02-12] MEDS ORDERED: IBUPROFEN 400 MG TABLET (FP) PO ONE ×2 (13:42→13:50)
== END 2022-02-12 13:56 | disposition home or self-care (01) ==
LOC: JER 13:23
DX: U07.1 COVID-19 (principal); R50.9 Fever, unspecified; R51.9 Headache, unspecified; R05.1 Acute cough
CPT/HCPCS: 0241U-QW; 99283-25

== ENCOUNTER 2022-07-24 09:03 | Emergency (ER) | payer OTHER ==
[2022-07-24 09:10] VITALS: TEMP 98.4; BMI 24.4
[2022-07-24 10:32] LABS: BASO % 0.6 % (0-2.0); EOS % 1.9 % (0-4.5); HEMATOCRIT 37.3 % (35.4-49); HEMOGLOBIN 12.7 GM/dL (11.7-16.9); LYMPH % 39.5 % (8-40); MCH 25.8 pg (25.7-33.7); MEAN CELL VOLUME 75.8 fl (80-96); MEAN PLT VOLUME 9.2 fl (7.5-11.1); MONO % 7.7 % (3.8-10.2); NEUT % 50.3 % (42.8-82.8); PLATELET COUNT 275 10^3/uL (134-434); RBC 4.92 M/mm3 (4.00-5.60); RDW 14.4 % (11.9-15.9); WHITE BLOOD COUNT 7.5 K/mm3 (4.0-10.0)
[2022-07-24 10:52] LABS: POTASSIUM 3.8 mmol/L (3.5-5.1)
[2022-07-24 10:54] LABS: CALCIUM 9.7 mg/dL (8.5-10.1)
[2022-07-24 10:59] LABS: BILIRUBIN,TOTAL 0.7 mg/dL (0.2-1)
[2022-07-24 11:00] LABS: TOT PROT 7.4 g/dl (6.4-8.2)
[2022-07-24 11:03] LABS: N-TERMINAL BNP 13.7 pg/ml (5-125)
[2022-07-24 12:11] VITALS: BP 109/63; PULSE 68; RESP 15
== END 2022-07-24 12:22 | disposition home or self-care (01) ==
LOC: JER 09:03
DX: R07.9 Chest pain, unspecified (principal); Z20.822 Contact with and (suspected) exposure to COVID-19
CPT/HCPCS: 0241U-QW; 36415; 71046-TC-FY; 80053; 83880; 84484; 85025; 93005; 93010; 99285-25

== ENCOUNTER 2023-02-05 04:32 | Day surgery (SDC) | payer OTHER ==
[2023-02-03 10:49] VITALS: BMI 25.7
[2023-02-05 11:32] VITALS: TEMP 97.8
[2023-02-05 12:00] VITALS: RESP 16
[2023-02-05 12:07] VITALS: BP 115/83; PULSE 76
== END 2023-02-05 12:43 | disposition home or self-care (01) ==
LOC: JASU-ENDO 04:32
PROVIDERS: ATTEND Internal Medicine Gastroenterology
PROC: 0DB78ZX Excision of Stomach, Pylorus, Via Natural or Artificial Opening Endoscopic, Diagnostic (ICD-10-PCS; 2023-02-05)
PROC: 0DB98ZX Excision of Duodenum, Via Natural or Artificial Opening Endoscopic, Diagnostic (ICD-10-PCS; principal; 2023-02-05 11:30)
DX: K29.50 Unspecified chronic gastritis without bleeding (principal)
CPT/HCPCS: 88305-TC; 88342-TC

== ENCOUNTER 2023-06-13 21:02 | Emergency (ER) | payer OTHER ==
[2023-06-13 21:11] VITALS: RESP 18; BMI 27.0
[2023-06-13] MEDS ORDERED: ACETAMINOPHEN INJECTION 100 ML IVPB ONE (22:45)
[2023-06-13] MEDS ORDERED: MAG HYDROX/AL HYDROX/SIMETH 30 ML UNIT-DOSE CUP ONE (22:46)
[2023-06-13] MEDS ORDERED: FAMOTIDINE 20 MG/50 ML IVPB 20 MG/50 ML MG IVPB ONE (22:46)
[2023-06-13 22:48] LABS: BASO % 0.5 % (0-2.0); EOS % 0.4 % (0-4.5); HEMATOCRIT 40.7 % (35.4-49); HEMOGLOBIN 13.4 GM/dL (11.7-16.9); LYMPH % 25.1 % (8-40); MCH 25.5 pg (25.7-33.7); MEAN CELL VOLUME 77.3 fl (80-96); MEAN PLT VOLUME 9.1 fl (7.5-11.1); MONO % 6.3 % (3.8-10.2); NEUT % 67.7 % (42.8-82.8); PLATELET COUNT 313 10^3/uL (134-434); RBC 5.26 M/mm3 (4.00-5.60); RDW 15.1 % (11.9-15.9); WHITE BLOOD COUNT 14.4 K/mm3 (4.0-10.0)
[2023-06-13] MEDS: LACTATED RINGERS SOLUTION 1000 ML INFUS.BAG IV ONE (22:58)
[2023-06-13] MEDS: FAMOTIDINE 20 MG/50 ML IVPB 20 MG/50 ML MG IVPB ONE (23:00)
[2023-06-13] MEDS: MAG HYDROX/AL HYDROX/SIMETH 30 ML UNIT-DOSE CUP PO ONE (23:00)
[2023-06-13] MEDS: ACETAMINOPHEN 1000 MG/100 ML BAG IVPB ONE (23:00)
[2023-06-13 23:12] LABS: POTASSIUM 4.5 mmol/L (3.5-5.1)
[2023-06-13 23:13] LABS: CALCIUM 8.7 mg/dL (8.5-10.1)
[2023-06-13 23:14] LABS: ALBUMIN 3.7 g/dl (3.4-5.0); MAGNESIUM 2.2 mg/dL (1.8-2.4)
[2023-06-13 23:17] LABS: CREATININE 1.1 mg/dL (0.55-1.3)
[2023-06-13 23:18] LABS: BILIRUBIN,TOTAL 0.4 mg/dL (0.2-1)
[2023-06-13 23:19] LABS: TOT PROT 7.6 g/dl (6.4-8.2)
[2023-06-14 00:45] VITALS: BP 110/76; PULSE 78; TEMP 98.9
== END 2023-06-14 00:44 | disposition home or self-care (01) ==
LOC: JER 21:02
PROC: 3E033GC Introduction of Other Therapeutic Substance into Peripheral Vein, Percutaneous Approach (ICD-10-PCS; principal; 2023-06-13)
PROC: 3E033NZ Introduction of Analgesics, Hypnotics, Sedatives into Peripheral Vein, Percutaneous Approach (ICD-10-PCS; 2023-06-13)
DX: R19.7 Diarrhea, unspecified (principal); T47.6X5A Adverse effect of antidiarrheal drugs, initial encounter; R10.9 Unspecified abdominal pain; K92.1 Melena
CPT/HCPCS: 80053; 83735; 85025; 99284-25; J0131

== ENCOUNTER 2023-07-16 20:59 | Emergency (ER) | payer OTHER ==
[2023-07-16 21:09] VITALS: BMI 27.0
[2023-07-16] MEDS ORDERED: ACETAMINOPHEN INJECTION 100 ML IVPB ONE (21:51)
[2023-07-16] MEDS ORDERED: ONDANSETRON 4 MG/2 ML VIAL ONE (21:51)
[2023-07-16] MEDS: ACETAMINOPHEN 1000 MG/100 ML BAG IVPB ONE (22:17)
[2023-07-16] MEDS: ONDANSETRON 4 MG/2 ML VIAL IVPUSH ONE (22:17)
[2023-07-16] MEDS: SODIUM CHLORIDE 0.9% 500 ML INFUS.BAG IV ONE (22:17)
[2023-07-16 22:23] LABS: BASO % 0.2 % (0-2.0); EOS % 0.1 % (0-4.5); HEMATOCRIT 42.5 % (35.4-49); LYMPH % 11.4 % (8-40); MCH 25.7 pg (25.7-33.7); MCHC 32.9 g/dl (32.0-35.9); MEAN CELL VOLUME 78.2 fl (80-96); MEAN PLT VOLUME 8.7 fl (7.5-11.1); MONO % 9.4 % (3.8-10.2); NEUT % 78.9 % (42.8-82.8); PLATELET COUNT 229 10^3/uL (134-434); RBC 5.43 M/mm3 (4.00-5.60); RDW 14.6 % (11.9-15.9); WHITE BLOOD COUNT 6.1 K/mm3 (4.0-10.0)
[2023-07-16 22:44] LABS: POTASSIUM 3.6 mmol/L (3.5-5.1)
[2023-07-16 22:46] LABS: ALBUMIN 3.9 g/dl (3.4-5.0); CALCIUM 8.8 mg/dL (8.5-10.1)
[2023-07-16 22:49] LABS: CREATININE 1.3 mg/dL (0.55-1.3)
[2023-07-16 22:51] LABS: BILIRUBIN,TOTAL 0.7 mg/dL (0.2-1); TOT PROT 7.3 g/dl (6.4-8.2)
[2023-07-16 23:51] LABS: EPI CELLS 8 /uL (0-25.1); HYALINE CASTS 0 /uL (0-3.1); URINE APPEARANCE CLEAR; URINE BACTERIA 0 /uL (0-1359); URINE BILIRUBIN NEGATIVE (NEGATIVE); URINE COLOR YELLOW; URINE GLUCOSE (UA) NEGATIVE (NEGATIVE); URINE KETONE TRACE (NEGATIVE); URINE LEUK ESTERASE NEGATIVE (NEGATIVE); URINE NITRITE NEGATIVE (NEGATIVE); URINE PROTEIN 1+ (NEGATIVE); URINE RBC 12 /uL (0-23.9); URINE WBC 15 /uL (0-25.8)
[2023-07-17 00:06] VITALS: BP 102/55; PULSE 103; RESP 18; TEMP 100.6
[2023-07-17] MEDS ORDERED: PIPERACILLIN/TAZOB 4.5 GM 4.5 GM/100 ML BAG IVPB ONE (00:46)
[2023-07-17] MEDS: PIPERACILLIN/TAZOBACTAM 4.5 GM VIAL IVPB ONE (00:53)
[2023-07-17] MEDS: LACTATED RINGERS SOLUTION 1000 ML INFUS.BAG IV ONE (00:53)
== END 2023-07-17 01:31 | disposition home or self-care (01) ==
LOC: JER 20:59
PROC: 3E030NZ Introduction of Analgesics, Hypnotics, Sedatives into Peripheral Vein, Open Approach (ICD-10-PCS; principal; 2023-07-16)
PROC: 3E030GC Introduction of Other Therapeutic Substance into Peripheral Vein, Open Approach (ICD-10-PCS; 2023-07-16)
PROC: 3E030GC Introduction of Other Therapeutic Substance into Peripheral Vein, Open Approach (ICD-10-PCS; 2023-07-17)
DX: A08.4 Viral intestinal infection, unspecified (principal); R11.2 Nausea with vomiting, unspecified; R10.13 Epigastric pain; R10.31 Right lower quadrant pain; R10.32 Left lower quadrant pain; R50.9 Fever, unspecified; R53.1 Weakness; R00.0 Tachycardia, unspecified; Z20.822 Contact with and (suspected) exposure to COVID-19
CPT/HCPCS: 0241U-QW; 36415; 71045-TC-FY; 74177-TC; 80053; 81003; 83605; 83690; 85025; 87040; 93005; 93010; 99285-25; J0131; Q9967

== ENCOUNTER 2023-10-11 21:49 | Emergency (ER) | payer OTHER ==
[2023-10-11 21:53] VITALS: BP 126/64; PULSE 78; RESP 20; TEMP 97.9; BMI 27.0
[2023-10-11] MEDS ORDERED: DEXAMETHASONE SOD PHOSPHATE 10 MG/1 ML VIAL ONE (22:10)
[2023-10-11] MEDS: DEXAMETHASONE SOD PHOSPHATE 10 MG/1 ML VIAL IM ONE (22:16)
[2023-10-11] MEDS: ALBUTEROL SO4 2.5/IPRATROPIUM 0.5 INH SOL 3 ML VIAL.NEB. NEB ONE (22:16)
== END 2023-10-11 23:51 | disposition home or self-care (01) ==
LOC: JERFT 21:49
PROC: 3E023GC Introduction of Other Therapeutic Substance into Muscle, Percutaneous Approach (ICD-10-PCS; principal; 2023-10-11)
PROC: 3E0F7GC Introduction of Other Therapeutic Substance into Respiratory Tract, Via Natural or Artificial Opening (ICD-10-PCS; 2023-10-11)
DX: J45.909 Unspecified asthma, uncomplicated (principal); R07.89 Other chest pain; Z87.891 Personal history of nicotine dependence
CPT/HCPCS: 71046-TC-FY; 99284-25; J1100

== ENCOUNTER 2024-01-04 21:23 | Emergency (ER) | payer OTHER ==
[2024-01-04 21:31] VITALS: BP 115/76; PULSE 65; RESP 18; TEMP 98.4; BMI 26.5
[2024-01-04 22:49] LABS: VENOUS BASE EXCESS -0.3 mmol/L (-2-2); VENOUS O2 SATURATION 74.5 % (70-80); VENOUS PCO2 43.6 mmHg (38-52); VENOUS PH 7.377 (7.310-7.410)
[2024-01-04 23:15] LABS: POTASSIUM 3.8 mmol/L (3.5-5.1)
[2024-01-04 23:17] LABS: CALCIUM 9.5 mg/dL (8.5-10.1)
[2024-01-04 23:19] LABS: ALBUMIN 3.9 g/dl (3.4-5.0)
[2024-01-04 23:22] LABS: CREATININE 1.1 mg/dL (0.55-1.3)
[2024-01-04 23:23] LABS: BILIRUBIN,TOTAL 0.3 mg/dL (0.2-1); TOT PROT 7.4 g/dl (6.4-8.2)
[2024-01-05 00:10] LABS: HIV INTERPRETATION NEGATIVE (NEGATIVE)
== END 2024-01-04 23:53 | disposition home or self-care (01) ==
LOC: JER 21:23
DX: R07.2 Precordial pain (principal); R05.9 Cough, unspecified; R11.2 Nausea with vomiting, unspecified; T55.1X1A Toxic effect of detergents, accidental (unintentional), initial encounter
CPT/HCPCS: 36415; 71046-TC-FY; 80053; 82803; 86803; 87389; 93005; 93010; 99285-25

== ENCOUNTER 2024-10-21 11:22 | Emergency (ER) | payer OTHER ==
[2024-10-21 11:39] VITALS: TEMP 98.3; BMI 26.9
[2024-10-21] MEDS ORDERED: ACETAMINOPHEN INJECTION 100 ML ONE (12:18)
[2024-10-21] MEDS ORDERED: FAMOTIDINE 20 MG/50 ML IVPB 20 MG/50 ML MG IVPB ONE (12:18)
[2024-10-21] MEDS: FAMOTIDINE 20 MG/50 ML IVPB 20 MG/50 ML MG IVPB ONE (12:20)
[2024-10-21] MEDS: LACTATED RINGERS SOLUTION 1000 ML INFUS.BAG IV ONE (12:20)
[2024-10-21] MEDS: ACETAMINOPHEN 1000 MG/100 ML BAG IVPB ONE (12:21)
[2024-10-21 12:31] LABS: ABSOLUTE IMMATURE GRANULOCYTES 0.02 x10^3/uL (0.0-0.031); BASOPHILS # 0.04 x10^3/uL (0.01-0.08); EOSINOPHIL % 2.1 % (0.8-7.0); EOSINOPHILS # 0.20 x10^3/uL (0.04-0.54); MCHC 31.4 g/dl (32.3-36.5); MEAN CELL VOLUME 82.4 fl (79.0-92.2); MEAN PLT VOLUME 10.5 fl (9.4-12.4); MONOCYTE # 0.61 x10^3/uL (0.30-0.82); MONOCYTE % 6.4 % (5.3-12.2); RDW 13.9 % (12.0-15.6)
[2024-10-21 12:39] LABS: INR 1.12 (0.83-1.09); PROTHROMBIN TIME (PATIENT) 12.2 SEC (9.7-13.0)
[2024-10-21 12:42] LABS: ACTIVATED PTT 31.3 SECONDS (25.2-36.5)
[2024-10-21 13:23] LABS: CO2 27.0 mmol/L (21-32); GLUCOSE,RANDOM 97.0 mg/dL (74-106)
[2024-10-21 13:26] LABS: CREATININE 1.2 mg/dL (0.55-1.3); SGOT/AST 43.0 U/L (15-37); SGPT/ALT 27.0 U/L (13-61)
[2024-10-21 13:27] LABS: TOT PROT 6.9 g/dl (6.4-8.2)
[2024-10-21 13:29] LABS: ALK PHOS 115.0 U/L (45-117)
[2024-10-21] MEDS ORDERED: diphenhydrAMINE HCL 25 MG CAPSULE (FP) PO ONE (13:42)
[2024-10-21] MEDS ORDERED: DEXAMETHASONE SOD PHOSPHATE 10 MG/1 ML VIAL ONE (13:42)
[2024-10-21] MEDS: diphenhydrAMINE HCL 25 MG CAPSULE (FP) PO ONE (13:44)
[2024-10-21] MEDS: DEXAMETHASONE 4 MG TABLET (FP) PO ONE (13:44)
[2024-10-21 16:05] VITALS: BP 107/62; PULSE 60; RESP 16
[2024-10-21 17:44] LABS: HCV DIAGNOSTIC IN-HOUSE W/RFLX NON-REACTIVE (NONREACTIVE)
[2024-10-21 17:46] LABS: HIV INTERPRETATION NEGATIVE (NEGATIVE)
== END 2024-10-21 16:05 | disposition home or self-care (01) ==
LOC: JER 11:22 → SUATTDRO 11:22 → UNDOADMOB 14:34 → JERBED 14:34 → JER 16:05
PROVIDERS: ATTEND Student in an Organized Health Care Education/Training Program
PROC: 3E033GC Introduction of Other Therapeutic Substance into Peripheral Vein, Percutaneous Approach (ICD-10-PCS; principal; 2024-10-21)
PROC: 3E033NZ Introduction of Analgesics, Hypnotics, Sedatives into Peripheral Vein, Percutaneous Approach (ICD-10-PCS; 2024-10-21)
DX: R10.11 Right upper quadrant pain (principal); R10.31 Right lower quadrant pain; R11.2 Nausea with vomiting, unspecified; R19.7 Diarrhea, unspecified
CPT/HCPCS: 36415; 74177-TC; 80053; 83605; 83690; 83735; 85025; 85610; 85730; 86803; 86850; 86900; 86901; 87389; 93005; 93010; 99285-25; Q9967

== ENCOUNTER 2024-12-12 06:50 | Day surgery (SDC) | payer OTHER ==
[2024-12-06 12:14] VITALS: BMI 26.6
[2024-12-12 10:05] VITALS: TEMP 97.5
[2024-12-12 11:22] VITALS: RESP 17
[2024-12-12 11:24] VITALS: BP 98/63; PULSE 60
== END 2024-12-12 10:50 | disposition home or self-care (01) ==
LOC: JASU-ENDO 06:50
PROVIDERS: ATTEND Internal Medicine Gastroenterology
PROC: 0DBL8ZX Excision of Transverse Colon, Via Natural or Artificial Opening Endoscopic, Diagnostic (ICD-10-PCS; 2024-12-12)
PROC: 0DBM8ZX Excision of Descending Colon, Via Natural or Artificial Opening Endoscopic, Diagnostic (ICD-10-PCS; 2024-12-12)
PROC: 0DBK8ZX Excision of Ascending Colon, Via Natural or Artificial Opening Endoscopic, Diagnostic (ICD-10-PCS; principal; 2024-12-12 09:15)
DX: K57.30 Diverticulosis of large intestine without perforation or abscess without bleeding (principal); K64.9 Unspecified hemorrhoids
CPT/HCPCS: 88305-TC